=== PATIENT | female | born 1995 | race Two or more races ===

== ENCOUNTER 2021-11-06 13:55 | Emergency (ER) | payer SELFPAY ==
[~2021-11-06] VITALS: Ht 160 cm; Wt 77.3 kg
[2021-11-06 16:18] VITALS: BP 131/71
[2021-11-06] MEDS ORDERED: IBUPROFEN 800 MG TABLET PO ONE (16:30)
== END 2021-11-06 17:17 | disposition home or self-care (01) ==
LOC: EMS 13:55
DX: S93.401A Sprain of unspecified ligament of right ankle, initial encounter (principal); S93.601A Unspecified sprain of right foot, initial encounter; X50.1XXA Overexertion from prolonged static or awkward postures, initial encounter; Y93.89 Activity, other specified; Y92.89 Other specified places as the place of occurrence of the external cause; Y99.8 Other external cause status
CPT/HCPCS: 99284; 73610-TC; 73630-TC; Z7502; Z7610

== ENCOUNTER 2024-03-25 19:51 | Emergency (ER) | payer SELFPAY ==
[~2024-03-25] VITALS: Ht 162.6 cm; Wt 90.9 kg
[2024-03-25 20:09] VITALS: BP 151/92; PULSE 106; RESP 16; TEMP 98.9; O2SAT 100
[2024-03-25 20:54] LABS: BASOPHILS % (AUTO) 0.7 % (0.0-2.0); EOSINOPHILS % (AUTO) 1.2 % (1.0-6.0); HEMATOCRIT 38.5 % (36-46); HEMOGLOBIN 12.2 g/dL (12.0-16.0); LYMPHOCYTES # (AUTO) 1.9 K/uL (1.0-4.8); LYMPHOCYTES % (AUTO) 23.8 % (22.0-44.0); MEAN CORPUSCULAR HEMOGLOBIN 25.9 pg (26.0-34.0); MEAN CORPUSCULAR HGB CONC 31.7 G/dL (31.0-37.0); MEAN CORPUSCULAR VOLUME 82 fL (80-100); MONOCYTES # (AUTO) 0.5 K/uL (0.1-1.0); MONOCYTES % (AUTO) 6.7 % (2.0-9.0); NEUTROPHILS # (AUTO) 5.4 K/uL (1.8-7.7); NEUTROPHILS % (AUTO) 67.6 % (40.0-70.0); PLATELET COUNT (AUTO) 316 K/uL (150-450); RED BLOOD CELL COUNT(AUTO) 4.72 MIL/uL (4.00-5.20); RED CELL DISTRIBUTION WIDTH 14.5 % (11.5-14.5); WHITE BLOOD COUNT (AUTO) 8.1 K/uL (4.5-11.0)
[2024-03-25 21:01] LABS: ANION GAP 11 mmol/L (8-16); CALCIUM, TOTAL 9.2 mg/dL (8.8-10.5); CARBON DIOXIDE 26 mmol/L (22-29); CHLORIDE 101 mmol/L (98-107); CREATININE 0.86 mg/dL (0.60-1.30); GLOMERULAR FILTR. RATE CALC > 60 mL/min (>60); GLUCOSE,RANDOM 113 mg/dL (70-110); POTASSIUM 3.8 mmol/L (3.5-5.1); SODIUM SERUM 138 mmol/L (136-145); UREA NITROGEN, BLOOD 8 mg/dL (7-18)
[2024-03-25 21:10] LABS: ALCOHOL, BLOOD (SERUM) < 3 mg/dL (0-10)
[2024-03-25] MEDS ORDERED: MECL-134 PO (23:03)
[2024-03-25] MEDS ORDERED: ACET-66 PO (23:03)
[2024-03-25] MEDS ORDERED: ONDA-104 PO (23:03)
[2024-03-25] MEDS: MECLIZINE HCL 25 MG TABLET PO ONE (23:13)
[2024-03-25] MEDS: ACETAMINOPHEN 500 MG TABLET PO ONE (23:13)
[2024-03-25] MEDS: ONDANSETRON 4 MG TABLET PO ONE (23:13)
[2024-03-25 23:14] LABS: COVID AG,FIA SOURCE NASAL SWAB
[2024-03-25 23:34] LABS: SARS-COV2 (COVID) ANTIGEN,FIA Negative (Negative)
== END 2024-03-25 23:24 | disposition home or self-care (01) ==
LOC: EMS 19:51
DX: R42 Dizziness and giddiness (principal); R11.0 Nausea; Z20.822 Contact with and (suspected) exposure to COVID-19
CPT/HCPCS: 99284; 87426; 80048; 84703; 85025; 36415; G0480; Q0162